=== PATIENT | male | born 1960 | race Caucasian/White ===

== ENCOUNTER 2023-01-09 21:56 | Emergency (ER) | payer OTHER, SELFPAY ==
[2023-01-09] VITALS (11 sets, daily range): BP systolic 124–139; BP diastolic 80–105; PULSE 74–88; RESP 18; TEMP 36.7; O2SAT 93–94; BMI 25.8
--- NOTE | 2023-01-09 23:14 | ED.GENADULT ---
HPI - General Adult General Chief complaint: Sore Throat Stated complaint: Fever, Sore Throat Time Seen by Provider: 01/09/23 21:59 Source: patient Mode of arrival: ambulatory Limitations: no limitations History of Present Illness HPI narrative: 62-year-old male coming in today complaining of not feeling well. States that this morning he developed a fever and a sore throat. Has been taking Tylenol or ibuprofen throughout the day which has helped his symptoms. He denies any nausea or vomiting. No headache blurry vision. No chest pain or shortness of breath. No abdominal discomfort. No urinary symptoms. No diarrhea. Related Data Home Medications Medication Instructions Recorded Confirmed rosuvastatin 10 mg tablet (Crestor) mg 01/09/23 Previous Rx's Medication Instructions Recorded penicillin V potassium 500 mg 500 mg PO TID 10 days #30 tabs 01/09/23 tablet penicillin V potassium 500 mg 500 mg PO TID 10 days #30 tabs 01/09/23 tablet Allergies Allergy/AdvReac Type Severity Reaction Status Date / Time No Known Drug Allergies Allergy Verified 01/09/23 22:10 Review of Systems Status of ROS: Reports: 10 or more systems reviewed and unremarkable except as noted in History and below [facility] Social History Smoking Status: Never smoker Do you use any of these nicotine containing products: None Second hand tobacco smoke exposure: No How often do you have a drink containing alcohol: never AUDIT-C Alcohol total score: 0 Non-prescribed substance use: denies use Exam Narrative: Exam Narrative: Well-nourished well-developed patient in no acute distress. Alert and oriented. Answers questions appropriately. Mood and affect are appropriate. Thoughts are goal oriented and rational. No tangential or magical thinking noted. Patient speaks in full sentences without needing to catch their breath. HEENT: Normocephalic atraumatic. Pupils are equally round reactive to light. Extraocular muscles are intact. Conjunctivae are moist without any icterus noted. Moist mucous membranes. Posterior pharynx shows tonsillar erythema and exudates. Neck is soft without any lymphadenopathy or thyromegaly. No masses are appreciated. Cardiovascular: Heart is regular rate and rhythm S1 and S2 are present without any murmurs. Lungs: Clear to auscultation bilaterally no wheezes rhonchi or rales are appreciated. Patient takes deep breaths without any discomfort. Abdomen: Soft and nontender nondistended with normal bowel sounds. Extremities: Bilateral lower extremities are without edema. Skin: Well perfused without any obvious rashes. Const: Vital Signs, click to edit/add: Vital Signs - 24 hr 01/09/23 22:06 01/09/23 22:17 Temperature 98.0 F Pulse Rate 87 Pulse Rate [Pulse Oximeter] 88 Respiratory Rate 18 Blood Pressure [Ri ght Upper Arm] 139/105 H Pulse Oximetry 93 93 Oxygen Delivery Me thod Room Air Room Air Course Course Hospital Course: Triple soft was negative. Strep was positive. Vital Signs Vital signs: Initial Vital Signs Temperature 98.0 F 01/09/23 22:06 Temperature Source Temporal Artery Scan 01/09/23 22:06 Pulse Rate 88 01/09/23 22:06 Respiratory Rate 18 01/09/23 22:06 Blood Pressure 139/105 H 01/09/23 22:06 Blood Pressure Mean 116 01/09/23 22:06 Blood Pressure Position Supine 01/09/23 22:06 Pulse Oximetry 93 01/09/23 22:06 Oxygen Delivery Method 01/09/23 22:06 Vital Signs Temperature 98.0 F 01/09/23 22:06 Pulse Rate 88 01/09/23 22:06 Respiratory Rate 18 01/09/23 22:06 Blood Pressure 139/105 H 01/09/23 22:06 Pulse Oximetry 93 01/09/23 22:06 Oxygen Delivery Method 01/09/23 22:06 Temperature 98.0 F 01/09/23 22:06 Pulse Rate 87 01/09/23 22:17 Respiratory Rate 18 01/09/23 22:06 Blood Pressure 139/105 H 01/09/23 22:06 Pulse Oximetry 93 01/09/23 22:17 Oxygen Delivery Method 01/09/23 22:17 Medical Decision Making MDM Narrative Medical decision making narrative: 62-year-old male with strep pharyngitis. Will treat with Penicillin. Lab Data Lab results reviewed: Yes I reviewed the patient's lab results Labs: Lab Results 01/09/23 01/09/23 Range/Units 22:10 22:10 SARS-CoV-2 (PCR) Negative SARS-CoV-2 (Negative) Influenza Type A (PCR) Negative PCR FLU A (Negative) Influenza Type B (PCR) Negative PCR FLU B (Negative) RSV (PCR) Negative PCR RSV (Negative) Group A Strep DNA DETECTED A (Not Detectd) Discharge Plan Discharge Clinical Impression: Acute streptococcal pharyngitis Patient Disposition: Home, Self-Care Condition: Stable Additional Instructions: Take all antibiotics as prescribed. Continue using Tylenol ibuprofen as needed for fevers. Return to the ER if you are getting worse instead of better over the next 48 hours. Prescriptions: New penicillin V potassium 500 mg tablet 500 mg PO TID 10 Days Qty: 30 0RF penicillin V potassium 500 mg tablet 500 mg PO TID 10 Days Qty: 30 0RF No Action rosuvastatin [Crestor] 10 mg tablet Follow Up/Referrals: Provider,Not a Local [Primary Care Provider] - Stand Alone Forms: JumpStart Info Instructions
[2023-01-09 23:18] LABS: Strep A DNA Probe* DETECTED (Not Detectd)
[2023-01-09 23:19] LABS: PCR FLU A Negative PCR FLU A (Negative); PCR FLU B Negative PCR FLU B (Negative); PCR RSV Negative PCR RSV (Negative)
[2023-01-09 23:24] LABS: SARS PCR* Negative SARS-CoV-2 (Negative)
[2023-01-09] MEDS: PENICILLIN VK 250 MG TABLET 500 MG PO (23:56)
== END 2023-01-09 23:59 | disposition home or self-care (01) ==
PROVIDERS: Emergency Provider Family Medicine
DX: J02.0 Streptococcal pharyngitis (principal)
CPT/HCPCS: 87502; 87634; 87635; 87651; 99283; 99284; A9270